=== PATIENT | female | born 1965 | race Caucasian/White ===

== ENCOUNTER 2019-07-11 11:03 | Emergency (ER) | payer SELFPAY ==
[~2019-07-11] VITALS: Ht 182.9 cm; Wt 85.0 kg
[2019-07-11 11:21] VITALS: BP 94/61
--- NOTE | 2019-07-11 11:29 | NUR ---
BIB BY [facility] FOR LEFT FLANK PAIN, LEFT FOOT & RIGHT SHOULDER PAIN WITH DECREASED URINATION/DYSURIA X 2 DAYS. ADMIT TO METH USE RECENTLY (FIRST TIME) HX OF DM 11 (FSBS ), HEROIN DEPENDENCE, KIDNEY FAILURE VSS
[2019-07-11 11:48] LABS: BASOPHILS % (AUTO) 1 % (0-1); EOSINOPHILS # (AUTO) 0.29 x10^3/uL (0-0.4); EOSINOPHILS % (AUTO) 2 % (1-7); LYMPHOCYTES # (AUTO) 2.29 x10^3/uL (1-3.4); LYMPHOCYTES % (AUTO) 15 % (22-44); MD NO; MEAN CORPUSCULAR HEMOGLOBIN 29.3 pg (27.0-34.8); MEAN CORPUSCULAR HGB CONC 33.5 g/dL (32.4-35.8); MEAN CORPUSCULAR VOLUME 87.4 fL (80-100); MEAN PLATELET VOLUME 10.2 fL (7.4-10.4); MONOCYTES # (AUTO) 0.94 x10^3/uL (0.2-0.8); MONOCYTES % (AUTO) 6 % (2-9); NEUTROPHILS # (AUTO) 11.79 x10^3/uL (1.8-6.8); NEUTROPHILS % (AUTO) 77 % (42-75); PLATELET COUNT 216 x10^3/uL (130-400); RED BLOOD COUNT 4.62 x10^6/uL (3.82-5.3); RED CELL DISTRIBUTION WIDTH 14.4 % (9.6-15.2)
[2019-07-11] MEDS ORDERED: LORazepam 2 MG/ML, 1ML ONE (11:55)
[2019-07-11] MEDS ORDERED: ONDANSETRON 2MG/ML, 2ML ONE (11:56)
[2019-07-11 11:58] LABS: ALANINE AMINOTRANSFERASE 36 U/L (12-78); ALBUMIN 3.3 g/dL (3.4-5.0); ANION GAP 11 mmol/L (5-15); CALCIUM 9.2 mg/dL (8.5-10.1); CHLORIDE 103 mmol/L (98-107); CREATININE 1.56 mg/dL (0.55-1.02)
[2019-07-11 12:00] LABS: ALKALINE PHOSPHATASE 132 U/L (45-117); BILIRUBIN,TOTAL 0.6 mg/dL (0.2-1.0); CREATINE KINASE, TOTAL 134 U/L (26-192); TOTAL PROTEIN 7.9 g/dL (6.4-8.2)
[2019-07-11] MEDS ORDERED: ONDANSETRON 2MG/ML, 2ML IVPush ONE (12:00)
[2019-07-11] MEDS ORDERED: LORazepam 2 MG/ML, 1ML IVPush ONE (12:00)
[2019-07-11] MEDS ORDERED: SODIUM CHLORIDE 0.9% 1,000ML IVBOLUS ONE (12:00)
[2019-07-11] MEDS ORDERED: SODIUM CHLORIDE 0.9% 1,000 ML IV ONE (12:00)
--- NOTE | 2019-07-11 12:07 | NUR ---
PIV PLACED-MEDICATED PER [facility] uP TO RESTROOM TO VOID
--- NOTE | 2019-07-11 12:22 | NUR ---
UA SENT IVF INFUSING PROVIDER MADE AWARE OF PATIENT INABILITY TO BEAR WEIGHT ON LEDT FOOT
[2019-07-11] MEDS ORDERED: SODIUM CHLORIDE FLUSH 10ML SYR IVF ONE (12:30)
[2019-07-11 12:38] LABS: MICROSCOPIC AUTO
[2019-07-11 13:46] LABS: CULTURE INDICATED? YES
[2019-07-11] MEDS ORDERED: KETOROLAC 30 MG/1 ML ONE (15:55)
[2019-07-11] MEDS ORDERED: KETOROLAC 30 MG/1 ML IVPush ONE (17:00)
== END 2019-07-11 16:27 | disposition home or self-care (01) ==
LOC: ED 12:03
DX: N30.00 Acute cystitis without hematuria (principal); F15.10 Other stimulant abuse, uncomplicated; E11.9 Type 2 diabetes mellitus without complications; F17.210 Nicotine dependence, cigarettes, uncomplicated
CPT/HCPCS: 36415; 73620; 74176; 80053; 81001; 82550; 85025; 87086; 96374; 96375; 99285; J1885; J2060; J2405; J7030